=== PATIENT | female | born 1970 | race Caucasian/White ===

== ENCOUNTER → 2021-11-25 | Day surgery (SDC) | payer OTHER ==
[~2021-11-25] MED LIST: ADVAIR 250-501 EACH INH; ALBUTEROL SULFAT2 MG PO; CETIRIZINE HCL5 M1 PO; FENTANYL CITRATE/PF 100MCG/2 ML INJ ONE; HYOSCYAMINE SULFATE 0.5 MG/ML INJ ONE; LASIX20 MG PO; METFORMIN HCL850 MG PO; MIDAZOLAM HCL 2 MG/2 ML VIAL ONE; MONTELUKAST SOD10 MG PO; NEURONTIN300 MG PO; NOVOLOG MI100 UNIT/1 SC; POVIDONE IODINE 0.05% 0.05 % ML PO ONE; PREDNISONE10 MG PO; PROPOFOL IV EMULSION 10 MG/ML 20 ML VIAL ONE
[2021-11-25 10:35] VITALS: BP 128/88
== END | disposition home or self-care (01) ==
LOC: OR 07:18
PROVIDERS: ATTEND Internal Medicine Gastroenterology
DX: Z12.11 Encounter for screening for malignant neoplasm of colon (principal); D12.0 Benign neoplasm of cecum; D12.2 Benign neoplasm of ascending colon; K64.8 Other hemorrhoids; K62.1 Rectal polyp; Z71.3 Dietary counseling and surveillance; E11.9 Type 2 diabetes mellitus without complications; J45.909 Unspecified asthma, uncomplicated; R03.0 Elevated blood-pressure reading, without diagnosis of hypertension; Z71.89 Other specified counseling; F17.210 Nicotine dependence, cigarettes, uncomplicated; Z71.6 Tobacco abuse counseling; Z88.8 Allergy status to other drugs, medicaments and biological substances; Z01.810 Encounter for preprocedural cardiovascular examination; Z79.4 Long term (current) use of insulin; Z79.899 Other long term (current) drug therapy; Z68.33 Body mass index [BMI] 33.0-33.9, adult
CPT/HCPCS: 36415; 45385; 81025; 82948; 93005; J1980; J2250; J3010